=== PATIENT | male | born 1950 | race Caucasian/White ===

== ENCOUNTER → 2016-10-13 | Outpatient (CLI) | payer BC, MEDICARE | END | disposition home or self-care (01) | LOC: RAD 15:05 | PROVIDERS: ATTEND Neurological Surgery | DX: M41.85 Other forms of scoliosis, thoracolumbar region (principal); M51.35 Other intervertebral disc degeneration, thoracolumbar region; M51.36 Other intervertebral disc degeneration, lumbar region; M50.30 Other cervical disc degeneration, unspecified cervical region; Z98.890 Other specified postprocedural states; Z98.1 Arthrodesis status | CPT/HCPCS: 72082 ==

== ENCOUNTER 2020-02-19 01:04 | Inpatient (IN) | payer BC, MEDICARE, OTHER ==
[~2020-02-19] VITALS: Ht 172.7 cm; Wt 117.6 kg
--- NOTE | 2020-02-19 01:10 | NUR ---
Note earnest in EDM - 02/19/20 at 0234 by HAILEY Pt had bowel movement in bed, bed henriquez used, and pt cleaned after. tolerated well. large, soft, brown.
--- NOTE | 2020-02-19 01:33 | NUR ---
pt bib EMS to room 16, chief complaint of anuria, for 2 days. seen at outside facility. placed in stretcher, on cr monitor, to assess. bladder scanner used, but difficult to determine amount of urine in bladder. indwelling catheter placed using [facility] protocols, 16 g, sterile procedure, with initial drainage of 125 ml
--- NOTE | 2020-02-19 01:40 | NUR ---
pt had bowel movement in bed, bed henriquez used. pt tolerated well. large, soft brown.
[2020-02-19 02:24] LABS: CHLORIDE,URINE RANDOM 19 mmol/L; POTASSIUM,URINE RANDOM 70 mmol/L; SODIUM,URINE RANDOM 18 mmol/L
[2020-02-19 02:28] LABS: MICROSCOPIC INDICATED
[2020-02-19] MEDS ORDERED: METHOCARBAMOL 500 MG TABLET PO PRN (02:30)
[2020-02-19] MEDS ORDERED: DOCUSATE 100 MG CAPSULE PO PRN (02:30)
[2020-02-19] MEDS ORDERED: morphine SULFATE 10 MG/ML, 1ML IVPush PRN (02:30)
[2020-02-19] MEDS ORDERED: OXYcodone IR 5MG TABLET PO PRN (02:30)
[2020-02-19] MEDS ORDERED: LABETALOL 5MG/ML, 20ML IVPush PRN (02:30)
[2020-02-19] MEDS ORDERED: GUAIFENESIN/DM 200-20MG, 10ML UDC PO PRN (02:30)
[2020-02-19] MEDS ORDERED: ACETAMINOPHEN 325 MG TABLET PO PRN (02:30)
[2020-02-19 02:47] LABS: BASOPHILS % (AUTO) 1 % (0-1); EOSINOPHILS % (AUTO) 1 % (1-7); LYMPHOCYTES % (AUTO) 11 % (22-44); MEAN CORPUSCULAR HEMOGLOBIN 31.1 pg (27.5-34.5); MEAN CORPUSCULAR HGB CONC 33.5 g/dL (33.2-36.2); MEAN PLATELET VOLUME 9.7 fL (7.4-10.4); MONOCYTES % (AUTO) 12 % (2-9); NEUTROPHILS % (AUTO) 75 % (42-75); PLATELET COUNT 202 x10^3/uL (130-400); RED BLOOD COUNT 4.47 x10^6/uL (4.38-5.82)
[2020-02-19 02:57] LABS: ALBUMIN 3.5 g/dL (3.4-5.0); ANION GAP 10 mmol/L (5-15); CHLORIDE 110 mmol/L (98-107); CREATININE 6.44 mg/dL (0.7-1.3)
[2020-02-19] MEDS ORDERED: ALBU18HF INH (02:57)
[2020-02-19] MEDS ORDERED: ALPR0.5T7 PO (02:57)
[2020-02-19] MEDS ORDERED: AMLO-150 PO (02:57)
[2020-02-19] MEDS ORDERED: OMEP20TA62 PO (02:58)
[2020-02-19] MEDS ORDERED: OLME5TAB6 PO/NG (02:59)
[2020-02-19] MEDS ORDERED: CYCL25PO20 PO/NG (03:00)
[2020-02-19] MEDS ORDERED: TIZA100P2 PO/NG (03:00)
[2020-02-19] MEDS ORDERED: LINA145C PO (03:01)
[2020-02-19] MEDS ORDERED: DULO30CA4 PO/NG (03:05)
[2020-02-19] MEDS ORDERED: CLOP75TA52 PO (03:05)
[2020-02-19 03:22] LABS: MD SCAN
[2020-02-19 03:40] VITALS: BP 110/58
[2020-02-19] MEDS ORDERED: ALLO300T PO (03:56)
[2020-02-19] MEDS: HEPARIN 5,000 UNITS/ML, 1ML SQ SCH ×3 (05:26→22:07)
[2020-02-19] MEDS: SODIUM CHLORIDE 0.9% 1,000 ML IV SCH ×3 (06:45→18:30)
[2020-02-19 08:45] VITALS: BP 95/51
[2020-02-19] MEDS: CLOPIDOGREL 75 MG TABLET PO SCH (10:36)
[2020-02-19 13:15] LABS: CLOSTRIDIUM DIFFICILE ANTIGEN NEGATIVE; CLOSTRIDIUM DIFFICILE TOXIN NEGATIVE (Negative)
[2020-02-19 14:00] VITALS: BP 96/59
[2020-02-19 18:36] VITALS: BP 113/61
[2020-02-20 00:37] VITALS: BP 121/67
[2020-02-20] MEDS: SODIUM CHLORIDE 0.9% 1,000 ML IV SCH ×3 (03:37→23:01)
[2020-02-20] MEDS: HEPARIN 5,000 UNITS/ML, 1ML SQ SCH ×3 (05:39→23:04)
[2020-02-20 06:14] LABS: BASOPHILS % (AUTO) 1 % (0-1); EOSINOPHILS % (AUTO) 1 % (1-7); LYMPHOCYTES % (AUTO) 10 % (22-44); MEAN CORPUSCULAR HEMOGLOBIN 31.1 pg (27.5-34.5); MEAN CORPUSCULAR HGB CONC 33.6 g/dL (33.2-36.2); MEAN PLATELET VOLUME 10.3 fL (7.4-10.4); MONOCYTES % (AUTO) 9 % (2-9); NEUTROPHILS % (AUTO) 79 % (42-75); PLATELET COUNT 203 x10^3/uL (130-400); RED BLOOD COUNT 4.46 x10^6/uL (4.38-5.82); RED CELL DISTRIBUTION WIDTH 13.7 % (9.4-14.8)
[2020-02-20 06:18] LABS: MD NO
[2020-02-20 06:26] LABS: CHLORIDE 110 mmol/L (98-107)
[2020-02-20 06:38] LABS: ALANINE AMINOTRANSFERASE 30 U/L (12-78); ALBUMIN 3.3 g/dL (3.4-5.0); ALKALINE PHOSPHATASE 89 U/L (45-117); ANION GAP 8 mmol/L (5-15); BILIRUBIN,TOTAL 0.9 mg/dL (0.2-1.0); CALCIUM 8.1 mg/dL (8.5-10.1); CREATININE 4.63 mg/dL (0.7-1.3); TOTAL PROTEIN 6.8 g/dL (6.4-8.2)
[2020-02-20 07:19] VITALS: BP 128/64
[2020-02-20] MEDS: ONDANSETRON 2MG/ML, 2ML IVPush PRN (10:07)
[2020-02-20] MEDS: CLOPIDOGREL 75 MG TABLET PO SCH (10:39)
[2020-02-20] MEDS: INSULIN LISPRO 100 UNITS/ML, PEN SQ-INSULIN SCH ×3 (11:00→23:57)
[2020-02-20 12:11] LABS: C-REACTIVE PROTEIN, QUANT 4.9 mg/dL (0.02-0.49)
[2020-02-20 12:41] VITALS: BP 119/55
[2020-02-20 20:38] VITALS: BP 104/57
[2020-02-20] MEDS: TEMAZEPAM 15 MG CAPSULE PO PRN (23:01)
[2020-02-21 00:54] VITALS: BP 113/56
[2020-02-21 05:52] LABS: BASOPHILS % (AUTO) 1 % (0-1); EOSINOPHILS % (AUTO) 0 % (1-7); LYMPHOCYTES % (AUTO) 10 % (22-44); MEAN CORPUSCULAR HEMOGLOBIN 31.2 pg (27.5-34.5); MEAN CORPUSCULAR HGB CONC 33.9 g/dL (33.2-36.2); MEAN PLATELET VOLUME 10.1 fL (7.4-10.4); MONOCYTES % (AUTO) 10 % (2-9); NEUTROPHILS % (AUTO) 79 % (42-75); PLATELET COUNT 202 x10^3/uL (130-400); RED BLOOD COUNT 4.32 x10^6/uL (4.38-5.82); RED CELL DISTRIBUTION WIDTH 13.7 % (9.4-14.8)
[2020-02-21 06:01] LABS: MD NO
[2020-02-21 06:09] LABS: ALBUMIN 3.2 g/dL (3.4-5.0); ANION GAP 9 mmol/L (5-15); CALCIUM 8.1 mg/dL (8.5-10.1); CHLORIDE 113 mmol/L (98-107)
[2020-02-21 06:10] LABS: CREATININE 2.92 mg/dL (0.7-1.3)
[2020-02-21] MEDS: HEPARIN 5,000 UNITS/ML, 1ML SQ SCH ×3 (06:13→22:40)
[2020-02-21] MEDS: SODIUM CHLORIDE 0.9% 1,000 ML IV SCH (06:15)
[2020-02-21] MEDS: INSULIN LISPRO 100 UNITS/ML, PEN SQ-INSULIN SCH ×4 (06:27→21:00)
[2020-02-21] MEDS: CLOPIDOGREL 75 MG TABLET PO SCH (08:26)
[2020-02-21 08:28] VITALS: BP 128/63
[2020-02-21 13:37] VITALS: BP 140/64
[2020-02-21] MEDS: ONDANSETRON 2MG/ML, 2ML IVPush PRN ×2 (15:51→15:57)
[2020-02-21] MEDS ORDERED: POLYETHYLENE GLYCOL 17 GM PACKET PO PRN (17:00)
[2020-02-21] MEDS ORDERED: BISACODYL 10 MG SUPP PR PRN (17:00)
[2020-02-21 21:37] VITALS: BP 116/55
[2020-02-21] MEDS: TEMAZEPAM 15 MG CAPSULE PO PRN (22:41)
[2020-02-22 03:40] VITALS: BP 128/63
[2020-02-22 06:22] LABS: BASOPHILS % (AUTO) 1 % (0-1); EOSINOPHILS % (AUTO) 1 % (1-7); LYMPHOCYTES % (AUTO) 13 % (22-44); MEAN CORPUSCULAR HEMOGLOBIN 31.5 pg (27.5-34.5); MEAN CORPUSCULAR HGB CONC 34.1 g/dL (33.2-36.2); MEAN PLATELET VOLUME 10.4 fL (7.4-10.4); MONOCYTES % (AUTO) 10 % (2-9); NEUTROPHILS % (AUTO) 75 % (42-75); PLATELET COUNT 196 x10^3/uL (130-400); RED BLOOD COUNT 3.99 x10^6/uL (4.38-5.82); RED CELL DISTRIBUTION WIDTH 13.8 % (9.4-14.8)
[2020-02-22] MEDS: HEPARIN 5,000 UNITS/ML, 1ML SQ SCH ×3 (06:28→23:23)
[2020-02-22 06:29] LABS: MD NO
[2020-02-22] MEDS: INSULIN LISPRO 100 UNITS/ML, PEN SQ-INSULIN SCH ×4 (06:30→22:14)
[2020-02-22 06:36] LABS: ANION GAP 8 mmol/L (5-15); CALCIUM 8.4 mg/dL (8.5-10.1); CHLORIDE 112 mmol/L (98-107)
[2020-02-22 09:21] VITALS: BP 151/51
[2020-02-22] MEDS: CLOPIDOGREL 75 MG TABLET PO SCH (10:37)
[2020-02-22] MEDS: ONDANSETRON 2MG/ML, 2ML IVPush SCH ×3 (10:37→23:00)
[2020-02-22] MEDS ORDERED: DEXAMETHASONE 4 MG/ML, 1ML IVPush SCH (12:30)
[2020-02-22] MEDS: METOPROLOL TARTRATE 25 MG TAB PO SCH ×2 (12:44→20:07)
[2020-02-22 14:00] VITALS: BP 120/57
[2020-02-22] MEDS: CEFTRIAXONE PMX 2GM/50ML 50 ML IVPB SCH (14:09)
[2020-02-22 19:54] VITALS: BP 110/78
[2020-02-22] MEDS: DOXYCYCLINE 100MG TABLET PO SCH (20:06)
[2020-02-22 20:08] VITALS: BP 134/62
[2020-02-23 01:15] VITALS: BP 123/60
[2020-02-23] MEDS: ONDANSETRON 2MG/ML, 2ML IVPush SCH ×4 (05:00→23:48)
[2020-02-23 06:00] VITALS: BP 140/67
[2020-02-23] MEDS: METOPROLOL TARTRATE 25 MG TAB PO SCH (06:03)
[2020-02-23 06:05] LABS: BASOPHILS % (AUTO) 0 % (0-1); EOSINOPHILS % (AUTO) 0 % (1-7); LYMPHOCYTES % (AUTO) 9 % (22-44); MEAN CORPUSCULAR HEMOGLOBIN 31.4 pg (27.5-34.5); MEAN CORPUSCULAR HGB CONC 34.3 g/dL (33.2-36.2); MEAN PLATELET VOLUME 10.2 fL (7.4-10.4); MONOCYTES % (AUTO) 5 % (2-9); NEUTROPHILS % (AUTO) 86 % (42-75); PLATELET COUNT 180 x10^3/uL (130-400); RED BLOOD COUNT 4.07 x10^6/uL (4.38-5.82); RED CELL DISTRIBUTION WIDTH 13.8 % (9.4-14.8)
[2020-02-23 06:07] LABS: ANION GAP 7 mmol/L (5-15); CALCIUM 8.3 mg/dL (8.5-10.1); CHLORIDE 111 mmol/L (98-107); CREATININE 1.74 mg/dL (0.7-1.3)
[2020-02-23 06:26] LABS: MD NO
[2020-02-23] MEDS: INSULIN LISPRO 100 UNITS/ML, PEN SQ-INSULIN SCH ×4 (07:00→21:00)
[2020-02-23 07:19] VITALS: BP 126/64
[2020-02-23] MEDS: DOXYCYCLINE 100MG TABLET PO SCH ×2 (07:57→22:03)
[2020-02-23] MEDS: CLOPIDOGREL 75 MG TABLET PO SCH (07:57)
[2020-02-23] MEDS: HEPARIN 5,000 UNITS/ML, 1ML SQ SCH ×3 (07:57→23:48)
[2020-02-23] MEDS ORDERED: ACETAMINOPHEN 325 MG TABLET PO PRN (08:00)
[2020-02-23 08:20] LABS: FIO2 94 %
[2020-02-23] MEDS: CEFTRIAXONE PMX 2GM/50ML 50 ML IVPB SCH (11:56)
[2020-02-23 12:05] VITALS: BP 127/60
[2020-02-23] MEDS ORDERED: FUROSEMIDE 20 MG/2 ML IV ONE (13:00)
[2020-02-23 17:40] VITALS: BP 128/67
[2020-02-23] MEDS: CARVEDILOL 3.125 MG TABLET PO SCH (17:42)
[2020-02-23 19:52] VITALS: BP 143/64
[2020-02-23] MEDS: TEMAZEPAM 15 MG CAPSULE PO PRN (22:10)
[2020-02-24 02:34] VITALS: BP 134/61
[2020-02-24 05:26] VITALS: BP 132/73
[2020-02-24] MEDS: ONDANSETRON 2MG/ML, 2ML IVPush SCH ×4 (05:29→23:36)
[2020-02-24] MEDS: CARVEDILOL 3.125 MG TABLET PO SCH ×2 (05:29→16:37)
[2020-02-24 06:42] VITALS: BP 119/55
[2020-02-24] MEDS: INSULIN LISPRO 100 UNITS/ML, PEN SQ-INSULIN SCH ×2 (07:00→11:39)
[2020-02-24] MEDS ORDERED: DEXAMETHASONE 4 MG TABLET PO SCH (07:30)
[2020-02-24] MEDS: DOXYCYCLINE 100MG TABLET PO SCH ×2 (07:54→20:15)
[2020-02-24] MEDS: CLOPIDOGREL 75 MG TABLET PO SCH (07:54)
[2020-02-24] MEDS: HEPARIN 5,000 UNITS/ML, 1ML SQ SCH ×3 (07:55→23:36)
[2020-02-24 10:47] LABS: ALBUMIN 3.1 g/dL (3.4-5.0); ANION GAP 11 mmol/L (5-15); CALCIUM 8.6 mg/dL (8.5-10.1); CHLORIDE 108 mmol/L (98-107); CREATININE 1.46 mg/dL (0.7-1.3)
[2020-02-24] MEDS: CEFTRIAXONE PMX 2GM/50ML 50 ML IVPB SCH (11:31)
[2020-02-24 12:05] VITALS: BP 140/66
[2020-02-24 18:39] VITALS: BP 144/61
[2020-02-25 00:03] VITALS: BP 120/56
[2020-02-25] MEDS: ONDANSETRON 2MG/ML, 2ML IVPush SCH ×4 (05:52→23:22)
[2020-02-25] MEDS: CARVEDILOL 3.125 MG TABLET PO SCH ×2 (05:52→17:35)
[2020-02-25 06:24] LABS: BASOPHILS % (AUTO) 1 % (0-1); EOSINOPHILS % (AUTO) 0 % (1-7); LYMPHOCYTES % (AUTO) 14 % (22-44); MEAN CORPUSCULAR HEMOGLOBIN 30.9 pg (27.5-34.5); MEAN CORPUSCULAR HGB CONC 33.8 g/dL (33.2-36.2); MEAN PLATELET VOLUME 9.8 fL (7.4-10.4); MONOCYTES % (AUTO) 7 % (2-9); NEUTROPHILS % (AUTO) 78 % (42-75); PLATELET COUNT 222 x10^3/uL (130-400); RED BLOOD COUNT 4.46 x10^6/uL (4.38-5.82); RED CELL DISTRIBUTION WIDTH 13.6 % (9.4-14.8)
[2020-02-25 06:27] LABS: MD NO
[2020-02-25 06:36] LABS: ALBUMIN 3.3 g/dL (3.4-5.0); ANION GAP 5 mmol/L (5-15); CALCIUM 8.6 mg/dL (8.5-10.1); CHLORIDE 106 mmol/L (98-107)
[2020-02-25 07:01] VITALS: BP 137/63
[2020-02-25] MEDS: DOXYCYCLINE 100MG TABLET PO SCH ×2 (09:46→21:59)
[2020-02-25] MEDS: HEPARIN 5,000 UNITS/ML, 1ML SQ SCH ×3 (09:46→23:22)
[2020-02-25] MEDS: CLOPIDOGREL 75 MG TABLET PO SCH (09:46)
[2020-02-25] MEDS: CEFTRIAXONE PMX 2GM/50ML 50 ML IVPB SCH (11:54)
[2020-02-25] MEDS ORDERED: LACT1TAB13 PO (14:04)
[2020-02-25] MEDS ORDERED: CARV3.1212 PO (14:04)
[2020-02-25 17:02] VITALS: BP 138/66
[2020-02-25 19:26] VITALS: BP 144/75
[2020-02-25] MEDS: TEMAZEPAM 15 MG CAPSULE PO PRN (23:21)
[2020-02-26 01:19] VITALS: BP 137/75
[2020-02-26] MEDS: ONDANSETRON 2MG/ML, 2ML IVPush SCH ×2 (06:19→10:07)
[2020-02-26] MEDS: CARVEDILOL 3.125 MG TABLET PO SCH (06:19)
[2020-02-26] MEDS: HEPARIN 5,000 UNITS/ML, 1ML SQ SCH (07:30)
[2020-02-26] MEDS: DOXYCYCLINE 100MG TABLET PO SCH (09:42)
[2020-02-26] MEDS: CLOPIDOGREL 75 MG TABLET PO SCH (09:42)
[2020-02-26] MEDS: CEFTRIAXONE PMX 2GM/50ML 50 ML IVPB SCH (12:28)
== END 2020-02-26 14:21 | disposition home health service (06) | DRG 871 ==
LOC: ED 02:02 → EDIP 02:30 → 4NE 03:23 → 3N 02-22 13:56
PROVIDERS: ADMIT Internal Medicine; ATTEND Internal Medicine
PROC: 0T9B70Z Drainage of Bladder with Drainage Device, Via Natural or Artificial Opening (ICD-10-PCS; principal; 2020-02-19)
DX: A41.9 Sepsis, unspecified organism (principal); J96.01 Acute respiratory failure with hypoxia; J18.9 Pneumonia, unspecified organism; N17.0 Acute kidney failure with tubular necrosis; E87.2 Acidosis; I50.32 Chronic diastolic (congestive) heart failure; E11.9 Type 2 diabetes mellitus without complications; E78.5 Hyperlipidemia, unspecified; E83.51 Hypocalcemia; E87.6 Hypokalemia; E66.01 Morbid (severe) obesity due to excess calories; G43.909 Migraine, unspecified, not intractable, without status migrainosus; G47.33 Obstructive sleep apnea (adult) (pediatric); G89.29 Other chronic pain; K58.0 Irritable bowel syndrome with diarrhea; M10.9 Gout, unspecified; N28.1 Cyst of kidney, acquired; F41.9 Anxiety disorder, unspecified; Z20.828 Contact with and (suspected) exposure to other viral communicable diseases; M54.9 Dorsalgia, unspecified; R29.6 Repeated falls; R34 Anuria and oliguria; Z79.02 Long term (current) use of antithrombotics/antiplatelets; Z68.39 Body mass index [BMI] 39.0-39.9, adult; Z86.73 Personal history of transient ischemic attack (TIA), and cerebral infarction without residual deficits; Z90.49 Acquired absence of other specified parts of digestive tract
CPT/HCPCS: 36415; 36600; 71045; 76770; 78580; 80048; 80053; 80069; 81001; 82436; 82570; 82803; 82962; 83036; 83615; 83735; 83880; 84100; 84133; 84145; 84300; 85025; 85379; 86140; 87086; 87205; 87324; 93005; 93306; 99285; G0378; J0696; J1100; J1644; J2405; A9540; J1815; J1940; J7030; U0003